=== PATIENT | male | born 1990 | race Caucasian/White ===

== ENCOUNTER 2018-05-17 19:08 | Emergency (ER) | payer OTHER ==
[~2018-05-17] VITALS: Ht 167.6 cm; Wt 104.5 kg
[~2018-05-17 19:08] MED LIST: AMLO10TA55 PO; HYDR25TA PO; LISI40TA4 PO
[2018-05-17] MEDS ORDERED: ERYTHROMYCIN 0.5% 3.5 GM TUBE OPHTHALMIC OINTMENT OD ONE (20:15)
[2018-05-17] MEDS ORDERED: PROPARACAINE HCL 0.5% 15 ML OPHTHALMIC SOLUTION OD ONE (20:15)
[2018-05-17] MEDS ORDERED: FLUORESCEIN SODIUM 1 MG STRIP OD ONE (20:15)
[2018-05-17 21:07] VITALS: BP 135/98
== END 2018-05-17 21:53 | disposition home or self-care (01) ==
LOC: EMS 19:08
DX: H10.9 Unspecified conjunctivitis (principal); I10 Essential (primary) hypertension; F41.9 Anxiety disorder, unspecified; F17.200 Nicotine dependence, unspecified, uncomplicated; F12.90 Cannabis use, unspecified, uncomplicated; Z79.899 Other long term (current) drug therapy